=== PATIENT | female | born 1945 | race American Indian/Alaskan Native ===

== ENCOUNTER 2016-12-30 02:30 | Emergency (ER) | payer MEDICARE, OTHER ==
[2016-12-30] MEDS ORDERED: MOTRIN PO ONE (09:01)
--- NOTE | 2016-12-30 09:02 | Emergency Department Report ---
ED Back Pain/Injury HPI - General Chief Complaint: Back Pain/Injury Stated Complaint: RIGHT BACK,LEG,HIP PAIN Time Seen by Provider: 12/30/16 07:38 Source: patient Limitations: No Limitations - History of Present Illness Complaint: back pain Onset/Timin -: week(s) Place: home Radiation: buttocks, right leg Severity: moderate Severity scale (0 -10): 7 Quality: dull, aching Consistency: intermittent Improves With: immobilization Worsens With: movement, walking Context: while lifting, turning/twisting, bending Associated Symptoms: denies other symptoms - Related Data Previous Rx's Medication Instructions Recorded Last Taken Type Acetaminophen/Codeine [Tylenol 1 tab PO Q6H PRN #12 tab 12/30/16 Unknown Rx /Codeine # 3 tab] Naproxen [Naprosyn TAB] 375 mg PO BID PRN #25 tablet 12/30/16 Unknown Rx Allergies Allergy/AdvReac Type Severity Reaction Status Date / Time Penicillins Allergy Hives Verified 01/12/15 23:05 ED Review of Systems ROS: Stated complaint: RIGHT BACK,LEG,HIP PAIN Other details as noted in HPI Constitutional: denies: chills, fever Eyes: denies: eye pain, eye discharge, vision change ENT: denies: ear pain, throat pain Respiratory: denies: cough, shortness of breath, wheezing Cardiovascular: denies: chest pain, palpitations Endocrine: no symptoms reported Gastrointestinal: denies: abdominal pain, nausea, diarrhea Genitourinary: denies: urgency, dysuria, discharge Musculoskeletal: as per HPI. denies: back pain, joint swelling, arthralgia Skin: denies: rash, lesions Neurological: denies: headache, weakness, paresthesias Psychiatric: denies: anxiety, depression Hematological/Lymphatic: denies: easy bleeding, easy bruising ED Past Medical Hx - Past Medical History Previous Medical History?: No - Surgical History Past Surgical History?: Yes Hx Breast Surgery: Yes (CYSTS RIGHT BREASTS REMOVED) Additional Surgical History: HYSTERECTOMY. CERVICAL FUSION - Social History Smoking Status: Former Smoker Substance Use Type: None - Medications Home Medications: Home Medications Medication Instructions Recorded Confirmed Last Taken Type Acetaminophen/Codeine [Tylenol 1 tab PO Q6H PRN #12 tab 12/30/16 Unknown Rx /Codeine # 3 tab] Naproxen [Naprosyn TAB] 375 mg PO BID PRN #25 tablet 12/30/16 Unknown Rx ED Physical Exam - General Limitations: No Limitations General appearance: alert, in no apparent distress - Head Head exam: Present: atraumatic, normocephalic - Eye Eye exam: Present: normal appearance, PERRL, EOMI - ENT ENT exam: Present: mucous membranes moist - Neck Neck exam: Present: normal inspection - Respiratory Respiratory exam: Present: normal lung sounds bilaterally. Absent: respiratory distress - Cardiovascular Cardiovascular Exam: Present: regular rate, normal rhythm. Absent: systolic murmur, diastolic murmur, rubs, gallop - GI/Abdominal GI/Abdominal exam: Present: soft, normal bowel sounds - Extremities Exam Extremities exam: Present: normal inspection - Back Exam Back exam: Present: normal inspection - Expanded Back Exam Expanded Back exam: Sciatic Notch Tenderness: Right, Positive Straight Leg Raise: Right ( 30 degrees) - Neurological Exam Neurological exam: Present: alert, oriented X3, CN II-XII intact, normal gait - Psychiatric Psychiatric exam: Present: normal affect, normal mood - Skin Skin exam: Present: warm, dry, intact, normal color. Absent: rash ED Course Vital Signs 12/30/16 12/30/16 12/30/16 03:01 03:33 09:44 Temperature 97.5 F L 97.5 F L Pulse Rate 68 Respiratory 18 16 Rate Blood Pressure 166/68 166/68 168/73 O2 Sat by Pulse 99 Oximetry 12/30/16 12/30/16 09:45 10:07 Temperature Pulse Rate Respiratory 18 16 Rate Blood Pressure O2 Sat by Pulse 100 Oximetry ED Medical Decision Making - Medical Decision Making A/P: Sciatica, right hip pain and osteoarthritis 1-naproxen when necessary, short course Tylenol 3 2-follow-up with primary care and orthopedics 3-patient is fully ambulatory without assistance, urinalysis unremarkable, no signs of cauda equina or cord compression. Cranial nerves I through XII grossly intact, rectal tone intact, strength 5 out of 5- all extremities, distal pulses intact dorsalis pedis and posterior tibial pulses bilaterally, distal deep tendon reflexes intact knee and ankle bilaterally. Critical care attestation.: If time is entered above; I have spent that time in minutes in the direct care of this critically ill patient, excluding procedure time. ED Disposition Clinical Impression: Sciatica of right side, Right hip pain Disposition: DC- TO HOME OR SELFCARE Is pt being admited?: No Does the pt Need Aspirin: No Condition: Stable Instructions: Sciatica (ED), Lumbar Radiculopathy (ED), Arthralgia (ED) Prescriptions: Acetaminophen/Codeine [Tylenol /Codeine # 3 tab] 1 tab PO Q6H PRN #12 tab PRN Reason: Pain Naproxen [Naprosyn TAB] 375 mg PO BID PRN #25 tablet PRN Reason: Pain Referrals: CHRISTINA CHEEMA MD [Primary Care Provider] - 3-5 Days LOR NICE MD [Staff Physician] - 3-5 Days PINA CHAMBERS JR, MD [Staff Physician] - 3-5 Days Time of Disposition: 10:47
[2016-12-30 09:31] LABS: Bacteria,Urine 1+ /HPF (Negative); Bilirubin,Urine NEG (Negative); Blood,Urine NEG (Negative); Ketones,Urine NEG (Negative); Leukocyte Esterase,Urine TR (Negative); Mucus,Urine FEW /HPF; Nitrite,Urine NEG (Negative); Protein,Urine <15 mg/dL mg/dL (Negative); Urobilinogen,Urine < 2.0 mg/dL (<2.0); WBC,Urine < 1.0 /HPF (0.0-6.0)
[2016-12-30 09:46] VITALS: BP 168/73
--- NOTE | 2016-12-30 09:48 | XRay Report ---
RIGHT HIP, 2 views: History: Right hip pain, right buttock pain. The bony architecture is intact without evidence of fracture or dislocation. Minimal osteoarthritic changes are identified. No significant soft tissue abnormality is seen. IMPRESSION: Minimal osteoarthritis. No acute process noted.
--- NOTE | 2016-12-30 09:49 | XRay Report ---
LUMBOSACRAL SPINE, 3 VIEWS: History: Back pain and right hip pain Findings: Bone mineralization appears within normal limits. There is normal height and alignment of the lumbar vertebra. No bone lesion or displaced fracture is appreciated. Mild to moderate multilevel degenerative disc disease and facet arthropathy are identified. The sacrum and SI joints are within normal limits. Impression: Lumbar spondylosis.
== END 2016-12-30 10:55 | disposition home or self-care (01) ==
LOC: ED 02:30
DX: M54.31 Sciatica, right side (principal); M25.551 Pain in right hip; Z88.0 Allergy status to penicillin; Z87.891 Personal history of nicotine dependence
CPT/HCPCS: 72100; 81001; 99284

== ENCOUNTER 2018-09-25 12:55 | Outpatient (CLI) | payer MEDICARE ==
--- NOTE | 2018-09-25 15:05 | Vascular Lab Report ---
PROCEDURE: VL VENOUS DUPLEX LE RT TECHNIQUE: Duplex Doppler sonography of the right lower extremity. Elias scale imaging with and witho ut compression, spectral waveform analysis with and without augmentation, and color flow Doppler were employed. HISTORY: RIGHT LEG SWELLING COMPARISONS: None FINDINGS: Deep Venous Thrombus: None Superficial Venous Thrombus: None Venous valvular incompetence: None Soft tissue abnormality: None IMPRESSION: No evidence of deep venous thrombosis This document is electronically signed by Shawnee Thornton., September 25 2018 03:04:07 PM ET
== END 2018-09-25 12:56 | disposition home or self-care (01) ==
LOC: VAS 12:55
PROVIDERS: ATTEND Family Medicine
DX: M79.89 Other specified soft tissue disorders (principal); Z90.710 Acquired absence of both cervix and uterus